=== PATIENT | male | born 1965 | race Caucasian/White ===

== ENCOUNTER 2023-08-04 20:16 | Inpatient (IN) | payer OTHER, SELFPAY ==
[2023-08-04 11:53] VITALS: BP 192/108
[2023-08-04 12:12] LABS: % Basophils 0.9 % (0-2); % Eosinophils 1.6 % (0-6); % Immature Granulocytes 0.4 % (0-0.5); % Lymphocytes 11.6 % (20.5-51.1); % Monocytes 9.5 % (1.7-9.3); Absolute Basophils 0.1 10^3/uL (0-0.2); Absolute Eosinophils 0.2 10^3/uL (0-0.7); Absolute Lymphocytes 1.1 10^3/uL (1.2-3.4); Absolute Monocytes 0.9 10^3/uL (0.1-0.6); Absolute Neutrophils 7.2 10^3/uL (1.4-6.5); Hematocrit 53.8 % (39.0-52.0); Hemoglobin 18.4 g/dL (13.0-18.0); Mean Corp Hgb Conc. 34.2 g/dL (33.0-37.0); Mean Corpuscular Hgb 29.3 pg (27.0-31.0); Mean Corpuscular Volume 85.5 fL (80.0-94.0); Mean Platelet Volume 8.8 fL (7.4-10.4); Nucleated Red Blood Cells % 0 % (-); Platelet Count 323 10^3/uL (130-400); Red Blood Cell Count 6.29 10^6/uL (4.70-6.10); Red Cell Dist. Width 12.1 % (11.5-14.5); White Blood Cell Count 9.5 10^3/uL (4.8-10.8)
[2023-08-04 12:25] LABS: ALT (SGPT) 32 U/L (0-50); AST (SGOT) 26 U/L (17-59); Albumin 5.5 g/dl (3.5-5.0); Alkaline Phosphatase 43 U/L (38-126); Blood Urea Nitrogen 23 mg/dl (9-20); Calcium 9.5 mg/dl (8.4-10.2); Carbon Dioxide 18 mmol/L (22-30); Chloride 97 mmol/L (98-107); Glucose 180 mg/dl (70-99); Lipase 105 U/L (23-300); Potassium 4.4 mmol/L (3.5-5.1); Sodium 136 mmol/L (135-145); Total Protein 8.2 g/dl (6.3-8.2); eGFR > 60.00
[2023-08-04] MEDS: NSS 1000 IV ×2 (14:09→22:44)
[2023-08-04] MEDS: DILAUDID 1 MG IV (14:10)
[2023-08-04] MEDS: ZOFRAN 4 MG IV (14:10)
--- NOTE | 2023-08-04 14:22 | ED.GENMED ---
History of Present Illness
General
Chief Complaint: Abdominal Pain
Source: patient
Exam Limitations: none
Time Seen by Provider: 08/04/23 13:36
Nursing documentation reviewed up to this point in time: agreed with
Travel History
Have you had any contact with someone who has COVID-19?: No
Do you have any symptoms of coronavirus? Fever > 100 degrees, chills, cough, shortness of breath, sore throat, loss of taste or smell, muscle aches, or headache?: No
History of Present Illness
History of Present Illness:
58-year-old male with history of HTN, HLD, NIDDM, ADHD, bipolar, nonalcoholic pancreatitis in 2011 presents with severe abdominal pain, nausea. States 2 nights ago while he was laying in bed sudden onset of generalized abdominal pain nausea and
vomiting. He felt better yesterday and then today at 7 AM pain suddenly. Again and is even worse. He denies fever or chills. He had a normal bowel movement yesterday. He is urinating well. He denies chest pain or trouble breathing.
Past History
Past History
ED Past Medical History: HTN, Hypercholesterolemia, NIDDM, Psychiatric (Anxiety) and Other (History of pancreatitis, type II diabetes, sleep apnea, immunoglobulin deficiency,)
ED Past Surgical History: None
Patient has exhibited threatening behavior?: No
PSI?: No
Social History
Tobacco: Former smoker
Alcohol: None
Drug: None
Personal: Single
Employment: Employed
Family History
Family History: Diabetes
Review of Systems
Review of Systems
Allergies reviewed?: Yes
All Other Systems: ROS reviewed and negative except as documented in HPI and ROS
Constitutional: Denies fever
Respiratory: Denies trouble breathing
Cardiac: Denies chest pain
ABD/GI: Reports abdominal pain, nausea and vomiting; Denies diarrhea, constipated, bloody stools or black stools
: Denies dysuria, frequency, difficulty voiding or urgency
Musculoskeletal: Reports no symptoms
Skin: Reports no symptoms
Neurological: Reports no symptoms
Phy Exam
Physical Exam
Physical Exam:
GENERAL: Moderate distress due to abdominal pain A&Ox3.
CONSTITUTIONAL: Afebrile.
EYES: PERRL, conjunctivae normal
ENMT: moist mucus membranes, Pharynx nl
RESPIRATORY: Regular respirations, nonlabored, lungs clear.
CARDIOVASCULAR: Regular rate and rhythm, no murmurs, no rubs.
GI: Rotund, semifirm, generally moderately tender, normal BS
MUSCULOSKELETAL: Moves with ease. Well perfused.
SKIN: Warm, dry, pink
PSYCH: Anxious mood and affect. Well kept, interactive and appropriate
NEUROLOGIC: Awake, alert and oriented. No focal neurological deficits
Course
Orders/Labs/Results
Orders:
Orders
08/04/23 12:00
Complete Blood Count/With Diff Urgent
Comprehensive Metabolic Panel Urgent
Lipase Urgent
08/04/23 14:01
HYDROmorphone [Dilaudid] 1 mg IV NOW STA
Ondansetron Injectable [Zofran] 4 mg IV NOW STA
08/04/23 14:02
0.9% Sodium Chloride 1000 ml [Nss] 1,000 ml IV BOLUS
08/04/23 14:25
Lactate Level [Lactic Acid] Urgent
08/04/23 15:05
CT Abd/pelvis W Iv Cont Urgent
Comment:
Reason For Exam: severe general abd pain
08/04/23 16:38
Ketorolac [Toradol] 15 mg IV NOW STA
08/04/23 17:21
SURGICAL CONSULT Urgent
Consulting Provider: Darrell Stanton
Was physician already notified: Yes
Reason for consult: SBO
08/04/23 18:34
Gastrointestinal Tubes As Directed
Type: Navarro sump
To suction?: Yes
Type of suction: Low intermittent
Irrigate tube?: No
08/04/23 19:03
HYDROmorphone [Dilaudid] 0.5 mg IV NOW STA
Lorazepam [Ativan] 1 mg IV NOW STA
08/04/23 19:05
Admit/Transfer Patient As Directed
Co-Sign Provider:
Level of Care: Inpatient admission
Assign to:: Medical/Surgical
Physician / Group: Johanna
Diagnosis: Small Bowel Obstruction
Reason for Hospitalization: NG tube, IVFs, Surgical Consult
Expected length of stay greater than two midnights?: Yes
ELOS- Estimated Length of Stay in days: 3
I certify the patient meets the requirements for IP care: Yes
0.9% Sodium Chloride [Nss (Preservative Free)] 0.5 ml IV NOW STA
08/04/23 19:06
Code Status As Directed
Resuscitation Status: Full Code
08/04/23 19:16
Pantoprazole [Protonix IV] 40 mg IV NOW STA
08/04/23 19:27
0.9% Sodium Chloride [Nss (Preservative Free)] 10 ml IV NOW STA
08/04/23 19:54
Portable Chest Xray [CR Chest Portable - 1 View] Stat
Comment:
Reason For Exam: post NG tube placement
Reason Study Needs to be Portable: Unable to Transport
08/04/23 20:53
HYDROmorphone [Dilaudid] 0.5 mg IV Q3HPRN PRN
08/04/23 21:18
HydrALAZINE [Apresoline] 10 mg IV Q6HPRN PRN
08/04/23 22:00
Lorazepam [Ativan] 1 mg IV QID
Abnormal Lab Results
08/04/23
12:00
RBC 6.29 H 10^6/uL
(4.70-6.10)
Hgb 18.4 H g/dL
(13.0-18.0)
Hct 53.8 H %
(39.0-52.0)
Absolute Neuts (auto) 7.2 H 10^3/uL
(1.4-6.5)
Absolute Lymphs (auto) 1.1 L 10^3/uL
(1.2-3.4)
Absolute Monos (auto) 0.9 H 10^3/uL
(0.1-0.6)
Neutrophils % 76.0 H %
(42.2-75.2)
Lymphocytes % 11.6 L %
(20.5-51.1)
Monocytes % 9.5 H %
(1.7-9.3)
Chloride 97 L mmol/L
(98-107)
Carbon Dioxide 18 L mmol/L
(22-30)
BUN 23 H mg/dl
(9-20)
Glucose 180 H mg/dl
(70-99)
Albumin 5.5 H g/dl
(3.5-5.0)
08/04/23 12:00
08/04/23 12:00
Vital Signs
Initial and Last Documented VS:
Initial Vital Signs
Temp Pulse Resp BP Pulse Ox
98.5 F 92 18 192/108 100
08/04/23 11:53 08/04/23 11:53 08/04/23 11:53 08/04/23 11:53 08/04/23 11:53
Last Documented Vital Signs
Temp Pulse Resp BP Pulse Ox
98.9 F 133 24 195/126 94
08/04/23 17:42 08/04/23 21:20 08/04/23 21:20 08/04/23 21:20 08/04/23 21:20
MDM/Problems Addressed
Differential Diagnosis Includes:
Pancreatitis, bowel obstruction, mesenteric ischemia, constipation
MDM/Problems Addressed:
08/04/2023 1400 PM
58-year-old male with history of HTN, HLD, NIDDM, ADHD, bipolar, nonalcoholic pancreatitis in 2011 presents with severe abdominal pain, nausea. States 2 nights ago while he was laying in bed sudden onset of generalized abdominal pain nausea and
vomiting. He felt better yesterday and then today at 7 AM pain suddenly. Again and is even worse. He denies fever or chills. He had a normal bowel movement yesterday. He is urinating well. He denies chest pain or trouble breathing.
Patient is in acute distress, writhing around on the stretcher, cannot find a comfortable position states 'I have never had pain this bad.'
08/04/2023 1424 PM
CBC with no clinically significant abnormality
CMP: Bicarb 18, BUN 23
Lipase WNL
Anion gap 21
Abdomen rotund, normal bowel sounds, generally significantly tender to palpation.
08/04/2023 1714 PM
Patient again complaining of significant abdominal pain.
CT results radiology report read:
IMPRESSION:
Small bowel obstruction with a transition point in the mid abdomen.
Hospitalist and Surgeon notified of admission
surgical consult in
Patient is lying comfortably on his right side and states the pain is well-controlled at this point.
*Critical Care Note
Total Time (30-74mins, 75-104mins- exclusive of procedures): Not Applicable
ED Attending Note
-
Portions of this chart may have been created with voice recognition software.� Occasional wrong word or��sound alike� substitutions may have occurred due to the inherent limitations of voice recognition software.
Discharge Plan
Departure
Patient Disposition: Admit
Date of Disposition: 08/04/23
Time of Disposition: 17:22
Admit to: Med/Surg
Presentation/result/management discussed w/ accepting MD/DO: Hospitalist
Condition: Fair
Discharge Problem:
SBO (small bowel obstruction)
Interventions
Interventions:
*Risk Screen - Suicide Last Done: 08/04/23 11:53
*General Assessment Last Done: 08/04/23 11:53
*Neglect/Abuse Screening Last Done: 08/04/23 11:53
ED- Fall Risk Assessment Last Done: 08/04/23 14:00
*ED COVID-19 Vaccine History Last Done: 08/04/23 11:53
JO-Scdwfz-Pgeygpsjif Assessment Last Done: 08/04/23 14:00
[2023-08-04 14:47] LABS: Lactic Acid 1.6 mmol/L (0.7-2.0)
[2023-08-04 14:51] VITALS: BP 188/109
[2023-08-04] MEDS: TORADOL 15 MG IV (16:44)
[2023-08-04 17:42] VITALS: BP 169/115
--- NOTE | 2023-08-04 18:54 | HPS.HSE ---
Addendum entered and electronically signed by Gaurav Spencer MD 08/04/23 20:22:
Severe abdominal pain. Savana had previous surgery, but did have pancreatitis once in the past
Pt seen independently and agree with PA note
Lungs clear
CV reg
Abd distended, active BS, very tender with +peritoneal signs
Imp:SBO
P:IVF
narcotic analgesic
Surgical consult, spoke to Dr. Stanton who requests NG decompression and he will see in morning
Original Note:
Family Physician
-
Family Physician: Cely Pham
Chief Complaint
-
Abdominal Pain and Distention
History of Present Illness
Patient is a 58 y/o male with PMH of hypertension, and non-insulin dependent type II diabetes who presented to the ED complaining of severe abdominal pain x 2 days. Patient says he had nausea and vomiting on Wednesday which then progressed to severe
abdominal pain. He experienced some relief yesterday afternoon but this morning it returned. He says he has 'never felt pain like this before'. He has had normal bowel movements since yesterday morning. He has indigestion at baseline however it has
been much worse over the past 2 days. He denies history of abdominal surgery. He denies fever, chills, sweats, or blood in stool.
Medical History
Past Medical History
Past Medical History: Reports Other
Additional Past Medical History:
Essential Hypertension
Hyperlipidemia
Diabetes Mellitus, Type II
Bipolar Disorder
ADHD
Past Surgical History: Reports None
Social History
Tobacco: Smoker (1/2 PPD)
Alcohol: None
Family History
Family History: Not pertinent
Allergies / Home Medications
Allergies reflects when Allergies were last updated in Known.
Home Medications with original date entered in Known
Allergy/Medication List:
Allergies
Allergy/AdvReac Type Severity Reaction Status Date / Time
cetirizine [From Zyrtec] Allergy Severe Anaphylaxis Verified 04/15/18 01:31
fexofenadine [From Janelle] Allergy Severe Anaphylaxis Verified 04/15/18 01:31
Home Medications
metformin 1,000 mg tablet 1,000 mg PO BID 08/25/11
amlodipine 10 mg tablet 10 mg PO DAILY 08/04/23
clonazepam 2 mg tablet 2 mg PO BID 08/04/23
dextroamphetamine-amphetamine 30 mg tablet 30 mg PO BID 08/04/23
empagliflozin 25 mg tablet (Jardiance) 25 mg PO DAILY 08/04/23
levocetirizine 5 mg tablet 5 mg PO DAILY 08/04/23
multivitamin 1 tab PO DAILY 08/04/23
pantoprazole 40 mg tablet,delayed release 40 mg PO DAILY 08/04/23
sertraline 100 mg tablet 200 mg PO DAILY 08/04/23
Review of Systems
-
A 12 point ROS was completed and negative except as noted: Yes
Constitutional: Denies Fever or Chills
Respiratory: Denies Cough or Trouble Breathing
Cardiac: Denies Chest Pain or Palpitations
Abdomen/GI: Reports See HPI
Physical Exam
Vital Signs
Vital Signs
Temp Pulse Resp BP Pulse Ox
98.9 F 110 16 169/115 96
08/04/23 17:42 08/04/23 17:42 08/04/23 17:42 08/04/23 17:42 08/04/23 17:42
Physical Exam
General: Other (Patient appears uncomfortable and pain)
HEENT: NormoCephalic and Anicteric
Respiratory: Clear and Non Labored Respirations
Cardiac: S1/S2 and Regular Rhythm
GI: Tender (Diffuse) and Distended
Rectal: Deferred by Provider
Musculoskeletal: No Clubbing, No Cyanosis and No Edema
Skin: Warm and Dry
Neuro: Awake, Alert, Oriented and Nonfocal/grossly intact
Laboratory Results
-
08/04/23 12:00
08/04/23 12:00
Laboratory Results
Lactic Acid 1.6 mmol/L (0.7-2.0) 08/04/23 14:25
Total Bilirubin 1.0 mg/dl (0.2-1.3) 08/04/23 12:00
AST 26 U/L (17-59) 08/04/23 12:00
ALT 32 U/L (0-50) 08/04/23 12:00
Alkaline Phosphatase 43 U/L (38-126) 08/04/23 12:00
Lipase 105 U/L (23-300) 08/04/23 12:00
Data Reviewed
-
CT Scan: Report Reviewed by me
Lab Data: Labs Reviewed by me
Impression/Plan
-
Small Bowel Obstruction
-Consult Surgery
-Place NG Tube
-Continue NPO/IVFs
Diabetes Mellitus, Type II
-Hold oral meds
-Monitor sugars and continue coverage insulin
Essential Hypertension
-Oral meds on hold
-Monitor blood pressure
Bipolar Disorder
-Change to lorazepam IV until able to resume oral meds
Tobacco Use Disorder
-Encourage cessation
-Offered Nicotine patch which patient declined
DVT proph: SCDs
Code Status: Full Code
[2023-08-04 19:22] VITALS: BP 204/117
[2023-08-04] MEDS: DILAUDID 0.5 MG IV ×3 (19:27→22:41)
[2023-08-04] MEDS: ATIVAN 1 MG IV ×2 (19:31→21:39)
[2023-08-04] MEDS: NSS (PRESERVATIVE FREE) 0.5 ML IV (19:33)
[2023-08-04] MEDS: PROTONIX IV 40 MG IV (19:58)
[2023-08-04] MEDS: NSS (PRESERVATIVE FREE) 10 ML IV (19:58)
--- NOTE | 2023-08-04 21:11 | EDRN ---
2044- this ABATTOIR MANAGER answered this pts call fuentes. the pt requested additional pain medication for abdominal pain.
2049- this ABATTOIR MANAGER spoke with admitting hospitalist ANA Elizalde notified her the pt is requesting pain meds sooner than Q3H which is what he has orders for. see EMAR. admitting hospitalist ANA Elizalde gave this ABATTOIR MANAGER verbal approval
to administer pain meds now per the pts request.
2099- this ABATTOIR MANAGER entered this pts room to administer ordered pain meds. the pt was noted out of bed standing in the bathroom urinating in the toilet while his NG tube was still hooked up to low intermittent wall suction. the pts gastric contents
were spilled on the bed sheets and the floor from the pts leaking NG tube due to the suction tubing being stretched. the pt was assisted to sit in a chair while this ABATTOIR MANAGER cleaned up the pts room, the floor, bedside table, bathroom floor, bed, and
put clean hospital bed sheets on the bed. the pt refused to change out of his soiled shirt into a clean hospital gown and told this ABATTOIR MANAGER 'just pin the NG tube to my shirt.' the pt was again told to use his call fuentes and wait for assistance before
getting out of bed. the pt stated 'I could not hold it I was going to piss my pants.' a urinal was placed at the pts bedside. pain medication was administered per EMAR order. the pt is waiting to be assigned a clean inpatient hospital room.
[2023-08-04 21:20] VITALS: BP 195/126
[2023-08-04] MEDS: APRESOLINE 10 MG IV (21:47)
[2023-08-04 22:01] VITALS: BP 168/108
[2023-08-04] MEDS: OFIRMEV 100 IV (22:35)
[2023-08-04] MEDS: ZOSYN 50 IV (22:45)
[2023-08-05] VITALS (17 sets, daily range): BP systolic 94–146; BP diastolic 62–106; BMI 20.7
[2023-08-05] MEDS: DILAUDID 0.5 MG IV ×4 (00:39→06:57)
[2023-08-05] MEDS: ZOFRAN 4 MG IV (00:40)
[2023-08-05] MEDS: ATIVAN 1 MG IV ×2 (03:07→14:31)
[2023-08-05] MEDS: ZOSYN 50 IV ×2 (04:32→14:08)
[2023-08-05] MEDS: NSS 1000 IV (05:53)
[2023-08-05 06:39] LABS: Blood Urea Nitrogen 43 mg/dl (9-20); Calcium 7.9 mg/dl (8.4-10.2); Carbon Dioxide 6 mmol/L (22-30); Chloride 104 mmol/L (98-107); Estimated Creatinine Clearance 27 ml/min; Glucose 270 mg/dl (70-99); Magnesium 2.4 mg/dl (1.6-2.3); Potassium 3.6 mmol/L (3.5-5.1); Sodium 139 mmol/L (135-145); eGFR 22.72
[2023-08-05 06:52] LABS: Hematocrit 59.5 % (39.0-52.0); Hemoglobin 19.5 g/dL (13.0-18.0); Mean Corp Hgb Conc. 32.8 g/dL (33.0-37.0); Mean Corpuscular Hgb 29.4 pg (27.0-31.0); Mean Corpuscular Volume 89.6 fL (80.0-94.0); Mean Platelet Volume 9.8 fL (7.4-10.4); Platelet Count 296 10^3/uL (130-400); Red Blood Cell Count 6.64 10^6/uL (4.70-6.10); Red Cell Dist. Width 12.8 % (11.5-14.5); White Blood Cell Count 2.5 10^3/uL (4.8-10.8)
[2023-08-05 07:29] LABS: Glucose - Point of Care 191 mg/dl (70-99)
--- NOTE | 2023-08-05 07:45 | CON.GS ---
Consultation
-
Date/Time Consultation Requested: 08/04/23 7pm
Date/Time Consultation Performed: 08/05/23 7am
Reason for Consultation: SBO
Medical History
-
Chief Complaint: Abdominal pain
History of Present Illness:
Patient is a 58-year-old male presenting to the emergency department secondary to a 3-day history of progressive and acute onset of abdominal pain.
Is only similar episode of pain like this in the past was when he had pancreatitis back in 2011 which has recovered from without recurrence. He is a limited historian at this time secondary to his acute illness. Reports a generalized abdominal
pain which is constant. Associated nausea and vomiting.
In discussing with his sister via phone call she states that he has had significant postprandial abdominal distention and bloating over the course of greater than a year. No past surgical history.
Past Medical History
Past Medical History: Other (Hypertension, type 2 diabetes [id number], bipolar, ADHD, hyperlipidemia)
Past Surgical History: None
Social History
Tobacco: Smoker (Half a pack per day)
Alcohol: None
Drug: None
Personal: Single
Living: Alone
Employment: Not Employed
Family History
Family History: Reviewed & Not Pertinent
Allergies / Home Medications
Allergy/AdvReac Type Severity Reaction Status Date / Time
cetirizine [From Zyrtec] Allergy Severe Anaphylaxis Verified 04/15/18 01:31
fexofenadine [From Janelle] Allergy Severe Anaphylaxis Verified 04/15/18 01:31
Medication Instructions Recorded Confirmed Type
metformin 1,000 mg tablet 1,000 mg PO BID 08/25/11 08/04/23 History
amlodipine 10 mg tablet 10 mg PO DAILY 08/04/23 08/04/23 History
clonazepam 2 mg tablet 2 mg PO BID 08/04/23 08/04/23 History
dextroamphetamine-amphetamine 30 30 mg PO BID 08/04/23 08/04/23 History
mg tablet
empagliflozin 25 mg tablet 25 mg PO DAILY 08/04/23 08/04/23 History
(Jardiance)
levocetirizine 5 mg tablet 5 mg PO DAILY 08/04/23 08/04/23 History
multivitamin 1 tab PO DAILY 08/04/23 08/04/23 History
pantoprazole 40 mg tablet,delayed 40 mg PO DAILY 08/04/23 08/04/23 History
release
sertraline 100 mg tablet 200 mg PO DAILY 08/04/23 08/04/23 History
Review of Systems
-
Unable to obtain full review of systems at this time due to: Acuity
A 10 point review of systems was completed, and was negative except as per HPI.
Physical Exam
Vital Signs
Temp Pulse Resp BP Pulse Ox
98.9 F 79 22 113/93 99
08/04/23 17:42 08/05/23 05:55 08/05/23 05:55 08/05/23 05:55 08/05/23 05:55
08/04/23 08/05/23 08/06/23
06:59 06:59 06:59
Actual Weight 71.214 kg
Body Mass Index (BMI) 0.0
Lab Results
08/05/23 04:40
08/05/23 04:40
WBC 2.5 10^3/uL (4.8-10.8) L 08/05/23 04:40
Hgb 19.5 g/dL (13.0-18.0) H 08/05/23 04:40
Hct 59.5 % (39.0-52.0) H 08/05/23 04:40
Plt Count 296 10^3/uL (130-400) 08/05/23 04:40
Abs Immat Gran (auto) 0.0 10^3/uL (0-0.05) 08/04/23 12:00
Neutrophils % 76.0 % (42.2-75.2) H 08/04/23 12:00
Physical Exam
General: Pain and Other (Acutely ill-appearing)
HEENT: Normocephalic and Anicteric
Respiratory: Accessory Resp Muscle Use
Cardiac: Regular Rhythm
GI: Soft, Tender (Diffuse tenderness with rebound) and Distended
Skin: Other
Neuro: AO x 3
Psych: Other (uncomfortable but calm)
Assessment / Plan
-
Assessment: 58-year-old male presenting with acute small bowel obstruction with no prior surgical history.
CT imaging reviewed. No evidence of closed-loop obstruction, pneumatosis, free air. There is moderate small bowel distention and abrupt transition point in the central abdomen. May be some nodularity associated with the bowel in this area.
Proximal small bowel distention and mild edema but no ascites.
NG tube placed in the emergency department yesterday evening with approximately 1 L of gastric contents overnight.
Reviewed with patient and his sister via phone call, given persistent pain, progressive acidosis, leukopenia and abdominal examination despite NG tube decompression recommended prompt surgical intervention. They are in agreement. Exploratory
laparotomy, probable bowel resection was reviewed in detail including the operative technique, potential operative findings and their management. We discussed the possibility of the need for second look laparotomy, staying intubated postoperatively
with ICU care. Reviewed associated risk with surgery and possible recovery pending operative findings. Any of their concerns or questions were fully addressed and informed consent was obtained.
Plan: OR setting up now for laparotomy
Continue Zosyn
Continue aggressive IV fluid resuscitation
[2023-08-05 08:54] LABS: Glycohemoglobin (HgbA1c) 9.3 % (4.0-5.6)
[2023-08-05 09:01] LABS: B.E. - POC -26.7 mmol/L; Glucose - POC 180 mg/dl (65-99); HCO3 - POC 8 mmol/L (21-29); Hematocrit - POC 46 % PCV (42-52); Hemodilution- POC Yes; Hemoglobin Calculated - POC 15.7; Ionized Calcium - POC 1.06 mmol/L (1.12-1.27); Lactate - POC 11.87 mmol/L (0.36-0.75); O2 Saturation %Calculated-POC 97.7 5 (92-96); PCO2 - POC 51 mmHg (35-45); PO2 - POC 180 mmHg (80-100); Potassium - POC 3.6 mmol/L (3.6-5.0); Sodium - POC 145 mmol/L (135-145); pH - POC 6.82 (7.35-7.45)
[2023-08-05 09:38] LABS: Glucose - POC 162 mg/dl (65-99); HCO3 - POC 12 mmol/L (21-29); Hematocrit - POC 42 % PCV (42-52); Hemodilution- POC Yes; Hemoglobin Calculated - POC 14.3; Ionized Calcium - POC 1.01 mmol/L (1.12-1.27); O2 Saturation %Calculated-POC 98.4 5 (92-96); PCO2 - POC 55 mmHg (35-45); PO2 - POC 176 mmHg (80-100); Potassium - POC 3.8 mmol/L (3.6-5.0); Sodium - POC 146 mmol/L (135-145); pH - POC 6.96 (7.35-7.45)
[2023-08-05 10:33] LABS: B.E. - POC -14.2 mmol/L; Glucose - POC 147 mg/dl (65-99); HCO3 - POC 16 mmol/L (21-29); Hematocrit - POC 37 % PCV (42-52); Hemodilution- POC Yes; Hemoglobin Calculated - POC 12.5; Ionized Calcium - POC 1.26 mmol/L (1.12-1.27); Lactate - POC 12.97 mmol/L (0.36-0.75); O2 Saturation %Calculated-POC 95.3 5 (92-96); PCO2 - POC 59 mmHg (35-45); PO2 - POC 110 mmHg (80-100); Potassium - POC 3.5 mmol/L (3.6-5.0); Sodium - POC 147 mmol/L (135-145); pH - POC 7.06 (7.35-7.45)
--- NOTE | 2023-08-05 11:52 | W.SUR.PREOP ---
Pre-Operative Surgical Note
-
I have examined this patient prior to the performance of the scheduled procedure.
The patient's condition is unchanged from the time of the current History and
Physical and the patient is able to undergo the scheduled procedure.
--- NOTE | 2023-08-05 11:52 | W.IMMPOSTOP ---
Addendum entered and electronically signed by Darrell Stanton MD 08/05/23 19:03:
#[id number]
Original Note:
Surgical Immed Post Op Note
-
Primary Surgeon: Maximino
Assisting Surgeon: Barbara FINNEY
Pre-op Diagnosis: Small bowel obstruction, peritonitis
Post-op Diagnosis: Small bowel obstruction, ischemic small bowel, peritonitis, septic/hypovolemic shock
Procedure Performed: Exploratory laparotomy, small bowel resection x 2
Anesthesia Type: GETA
Specimen / Cultures: Small bowel resection at point of obstruction/stenosis; more proximal small bowel resection of area of ischemic small bowel
Estimated Blood Loss: 50 mL
Complications: None immediate
Operative Findings: High-grade/complete small bowel obstruction from food bolus present at suspected Meckel's diverticular high-grade stricture. Moderately distended proximal small bowel with areas suggestive of partial-thickness/mucosal ischemia.
Proximal ileum/distal jejunum particularly with what appeared to be circumferential mucosal ischemia. Small bowel proximally and distal to this area suspected to have more limited areas of mucosal ischemia. Small bowel resection performed of about
85 cm to 90 cm where the circumferential mucosal ischemia was noted. First small bowel anastomosis is at 90 cm from ligament of Treitz ([id number] KRISTI 80 purple). Second small bowel anastomosis is 85 cm distally from this and 50 cm from terminal
ileum ([id number] KRISTI 80 purple anastomosis)
Plan: Right radial arterial line placed intraoperatively by anesthesiologist. Right internal jugular central venous line placed intraoperatively by anesthesiologist.
Transferred to intensive care unit for ongoing postoperative resuscitation. Cautiously optimistic/hopeful that with improved hemodynamics remaining small bowel perfusion will improve and remain viable. Possibility exists for need of second look
laparotomy in 24 to 48 hours pending clinical course.
Updated patient's sister via phone call postoperatively.
--- NOTE | 2023-08-05 12:15 | CON.INTV ---
Consultation
Consultation Request
Date/Time Consultation Requested: 08/05/2023
Date/Time Consultation Performed: 08/05/2023
Requesting Provider: Dr. Stanton
Performing Provider: Dr. Raman Bae
Reason for Consultation: Septic shock
Medical History
-
History of Present Illness:
58-year-old male with history of hypertension, active smoker, type 2 diabetes who presented to the emergency room complaining of severe abdominal pain for the last 2 to 3 days. Apparently since Wednesday also with nausea vomiting that has been
progressive with severe abdominal pain. There is no reports of fevers, chills, bloody stools or melena.
He was found to be in profound metabolic acidosis, suggestive of bowel ischemia. Patient was hyperglycemic.
CT abdomen pelvis in the emergency room demonstrated small bowel obstruction with a transition point in the mid abdomen.
This morning he was emergently taken to the operating room due to progressive acidosis, hypotension and critical illness.
Underwent a small bowel resection. Transfer back to the critical care unit for further care.
Currently on shock, requiring multiple pressors. Intubated.
Currently sedated. Unable to provide history.
Records reviewed.
Past Medical History
Past Medical History: Other (See assessment and plan section)
Social History
Tobacco: Smoker (Half a pack per day )
Drug: None
Family History
Family History: Unable to Obtain
Allergies / Home Medications
Allergies
Allergy/AdvReac Type Severity Reaction Status Date / Time
cetirizine [From Zyrtec] Allergy Severe Anaphylaxis Verified 04/15/18 01:31
fexofenadine [From Janelle] Allergy Severe Anaphylaxis Verified 04/15/18 01:31
Home Medications
Medication Instructions Recorded Confirmed Last Taken Type
metformin 1,000 mg tablet 1,000 mg PO BID 08/25/11 08/04/23 2 Days Ago History
~08/02/23
amlodipine 10 mg tablet 10 mg PO DAILY 08/04/23 08/04/23 2 Days Ago History
~08/02/23
clonazepam 2 mg tablet 2 mg PO BID 08/04/23 08/04/23 2 Days Ago History
~08/02/23
dextroamphetamine-amphetamine 30 30 mg PO BID 08/04/23 08/04/23 2 Days Ago History
mg tablet ~08/02/23
empagliflozin 25 mg tablet 25 mg PO DAILY 08/04/23 08/04/23 2 Days Ago History
(Jardiance) ~08/02/23
levocetirizine 5 mg tablet 5 mg PO DAILY 08/04/23 08/04/23 2 Days Ago History
~08/02/23
multivitamin 1 tab PO DAILY 08/04/23 08/04/23 2 Days Ago History
~08/02/23
pantoprazole 40 mg tablet,delayed 40 mg PO DAILY 08/04/23 08/04/23 2 Days Ago History
release ~08/02/23
sertraline 100 mg tablet 200 mg PO DAILY 08/04/23 08/04/23 2 Days Ago History
~08/02/23
Review of Systems
-
Unable to Obtain full review of systems at this time due to: Acuity
Vitals / Labs / Diagnostic Testing
Vital Signs
Temp Pulse Resp BP Pulse Ox
98.9 F 99 30 119/98 95
08/04/23 17:42 08/05/23 07:40 08/05/23 07:40 08/05/23 07:40 08/05/23 12:12
Diagnostic Testing:
Physical Exam
-
HEENT: Normocephalic
Cardiovascular: S1/S2
Respiratory: Clear and Non-Labored Respirations
GI: Soft, Distended (Decreased bowel sounds, status post surgery.), Other (Flores in place with y small amount of yellow urine.) and Other (Absent bowel sounds. Incision is intact)
Neurology: Other ( Sedated, mechanical ventilation.)
Skin: Other (Mottled skin. Acrocyanosis.)
General: Comfortable (On sedation)
Assessment
-
58-year-old man with type 2 diabetes, hypertension, bipolar disorder, came with acute abdominal pain. Found to be in profound metabolic acidosis, small bowel obstruction. Taken to the operating room emergently 08/05/2023. Underwent a small bowel
resection. Transferred to the critical care unit intubated on mechanical ventilation on pressors.
Possible septic shock-due to bowel ischemia.
Small bowel obstruction: Bowel ischemia.
CT chest 08/04/2023:Small bowel obstruction with a transition point in the mid abdomen.
Status post small bowel resection 08/05/2023
Respiratory failure: Likely hypercapnic in the setting of severe metabolic acidosis. On mechanical ventilation since 08/05/2023.
Profound metabolic acidosis secondary to above
Acute kidney injury-oliguric, creatinine 3.1.
Hyperglycemia-due to critical illness.
Conditions present prior admission:
Type 2 diabetes
Hypertension
Overweight
Smoker
HD HTN
Bipolar disorder
Hyperlipidemia
-
Plan recommendations:
Patient is critically ill with multiorgan failure including respiratory failure, septic shock, metabolic acidosis, acute kidney injury.
-
Status post small bowel resection
Case discussed with Dr. Stanton. There is potential for reexploration of the abdomen. He resected about a third of the small bowel that was potentially ischemic.
Maintain antibiotics for now
Cultures were sent we will follow
Will remain n.p.o.
NG tube in place
-
Septic shock: Continue hemodynamic support. Maintain mean arterial blood pressure greater than 65 mmHg.
Central line in place
Arterial line in place
Will trend lactic acid and BMP
-
Mechanical ventilation settings reviewed.
Not significantly hypoxemic.
Repeat ABG, will adjust mechanical ventilation depending on results
Chest x-ray: Reviewed bibasilar atelectasis. ET tube in place.
-
Sedation, discontinue Precedex.
Start fentanyl drip.
Maintain RASS (0-1)
-
Acute kidney injury secondary to above
Flores in place
Oliguria
Will start bicarbonate drip due to profound metabolic acidosis
May need nephrology consultation.
Cannot rule out that the patient may need CRRT.
-
Hold antihypertensives
Avoid other nephrotoxins
-
Type 2 diabetes, uncontrolled. Likely will need insulin drip.
Continue insulin sliding scale for now.
-
N.p.o.
Head of the bed elevation
DVT prophylaxis SCDs for now.
-
Critical care statement: A total of 50 minutes of critical care time was provided for this patient today. This includes management of unstable vital signs, evaluation of the patient at bedside, reviewing the patient's pertinent medical records
including ventilator settings, arterial blood gases, radiographs, microbiology, laboratory evaluations and discussion with primary team, critical care nursing, and respiratory therapy.
[2023-08-05] MEDS: SUBLIMAZE 100 IV (12:57)
[2023-08-05] MEDS: SUBLIMAZE 50 MCG IV ×2 (13:05→14:31)
[2023-08-05 13:10] LABS: B.E. -17.2 mmol/L; PCO2 57 mmHg (35-48); PO2 112 mmHg (83-108)
[2023-08-05 13:10] LABS: Hematocrit 50.2 % (39.0-52.0); Hemoglobin 16.3 g/dL (13.0-18.0); Mean Corp Hgb Conc. 32.5 g/dL (33.0-37.0); Mean Corpuscular Hgb 29.1 pg (27.0-31.0); Mean Corpuscular Volume 89.5 fL (80.0-94.0); Red Blood Cell Count 5.61 10^6/uL (4.70-6.10); Red Cell Dist. Width 12.8 % (11.5-14.5); White Blood Cell Count 3.3 10^3/uL (4.8-10.8)
[2023-08-05 13:13] LABS: HCO3 14.4 mmol/L (21-28); pH 7.01 (7.35-7.45)
[2023-08-05 13:21] LABS: INR 2.36; PT 26.1 Sec (11.4-14.6)
[2023-08-05 13:22] LABS: APTT 49.9 Sec (23.4-35.0)
[2023-08-05 13:23] LABS: Lactic Acid 8.1 mmol/L (0.7-2.0)
[2023-08-05 13:24] LABS: Glucose - Point of Care 162 mg/dl (70-99)
[2023-08-05 13:36] LABS: Blood Urea Nitrogen 45 mg/dl (9-20); Calcium 7.5 mg/dl (8.4-10.2); Carbon Dioxide 17 mmol/L (22-30); Chloride 106 mmol/L (98-107); Estimated Creatinine Clearance 30 ml/min; Glucose 185 mg/dl (70-99); Phosphorus 9.5 mg/dl (2.5-4.5); Potassium 4.4 mmol/L (3.5-5.1); Sodium 140 mmol/L (135-145); eGFR 25.68
[2023-08-05] MEDS: ATIVAN IV ×2 (13:37→18:51)
[2023-08-05] MEDS: ZOSYN IV (13:37)
--- NOTE | 2023-08-05 13:38 | W.PN.HOSP.TC ---
Today's Communication/Plan
-
change IVF to include bicarb
consult [facility] DM for insulin management
wean pressors as able
check blood cultures
cont zosyn
apprec all consultants
Assessment / Plan
Assessment / Plan
pt is a 58 year old male
Septic shock/EHSAN/severe lactic acidosis due to Small Bowel Obstruction with ischemic bowel--apprec surgery--s/p bowel resection--cont NGT--cont IVF--change to include bicarbonate as HCO3 is 14 and pH 7.01--apprec charger--remains intubated, vent
as per pulm--potential for re-exploration of abdomen as per surgery--on 3 pressors, wean as able--on fentanyl for sedation, precedex stopped per nursing--creat 3.1 on 08/04 down to 2.8--check blood cultures--cont zosyn
Diabetes Mellitus, Type II--Hold oral meds--Monitor sugars and continue coverage insulin--consult DM MAT MAN for insulin requirements
Essential Hypertension--Oral meds on hold--on 3 pressors, wean as able
Bipolar Disorder-- hold all oral meds--may need psych consult--Change to lorazepam IV until able to resume oral meds
Tobacco Use Disorder--Encourage cessation--Offered Nicotine patch which patient declined
DVT proph: SCDs
Code Status: Full Code
Anticipated Discharge: > 48 hours
Subjective/Interval History
-
Date of Service: August 05, 2023
pt s/p OR with bowel resection--remains intubated
Objective Data
-
Labs:
Laboratory Results
08/05/23 08/05/23 08/05/23
04:40 12:49 12:52
WBC 2.5 L 3.3 L
Hgb 19.5 H 16.3
Hct 59.5 H 50.2
Plt Count 296 Pending
PT 26.1 H
INR 2.36
APTT 49.9 H
HCO3 14.4 L*
Sodium 139 140
Potassium 3.6 4.4
Chloride 104 106
Carbon Dioxide 6 L* 17 L
BUN 43 H 45 H
Creatinine 3.1 H 2.8 H
Glucose 270 H 185 H
Calcium 7.9 L D 7.5 L
08/05/23
16:00
WBC
Hgb
Hct
Plt Count
PT
INR
APTT
HCO3
Sodium Pending
Potassium Pending
Chloride Pending
Carbon Dioxide Pending
BUN Pending
Creatinine Pending
Glucose Pending
Calcium Pending
Vital Signs:
max temp for 24 hours
08/04/23
17:42
Temp 98.9 F
Vital Signs
Temp Pulse Resp BP Pulse Ox
98.9 F 105 14 124/90 92
08/04/23 17:42 08/05/23 12:45 08/05/23 12:45 08/05/23 12:45 08/05/23 13:15
I&O
08/04/23 08/05/23 08/06/23
06:59 06:59 06:59
Intake Total 1120 / 1120
Output Total 1600 / 1600 900 / 900
Balance -480 / -480 -900 / -900
Review of Systems
-
Unable to obtain full review of systems at this time due to: Patient Intubation
Physical Exam
-
General: Well Developed, Well Nourished, No Apparent Distress and Intubated
HEENT: Normocephalic, Atraumatic and Other (cyanotic ears)
Respiratory: Clear to Auscultation; Negative Wheezes, Rales, Rhonchi or Crackles
Cardiac: Regular Rhythm and S1/S2; Negative Murmur
GI: Soft, Nontender and Distended (post op); Negative Normal Bowel Sounds (no bowel sounds)
Musculoskeletal: No Clubbing and No Edema; Negative No Cyanosis (cyanotic ears)
Neuro: Sedated; Negative Awake or Alert
Psych: Calm
--- NOTE | 2023-08-05 14:00 | PTCARENOTE ---
Patient received from OR intubated on ventilator. Epinephrine, Levophed, and vasopressin transfusing, titrate to keep MAP >65. Sinus tachycardia on the monitor. Abdomen with prema, dressing CDI. Flores catheter in place draining minimal urine. NGT
to intermittent suction, bloody output. Patient resting in bed, CPOT monitored.
--- NOTE | 2023-08-05 14:04 | W.PN.UPDATE ---
Update Note
Progress Note Update
Discussed with nursing patient has anisocoric pupils. Possible righ postsurgical changes.
Unable to assess mental status at this point.
I view of severe metabolic abnormalities, and shock, will attempt to correct severe acidosis and reeevaluate.
Will consider CT brain if changes persist in next several hours.
Will give bolus 500ml of NS now
Severe resp and metabolic acidosis, vent settings adjusted by me, RR increased to 26x.
Will give a bolus of HCO3 50meq now and followed by a gtt
Repeat labs at 3pm
Repeat ABG at 1pm
Pronosis is guarted.
Additional CCT 30 min.
[2023-08-05] MEDS: LEVOPHED 250 IV (14:08)
[2023-08-05 14:12] LABS: Mean Platelet Volume 9.8 fL (7.4-10.4); Platelet Count 70 10^3/uL (130-400)
[2023-08-05 14:13] LABS: Absolute Neutrophils -Man Diff 1.6 10^3/uL (1.4-6.5); Anisocytosis 1+; Band Neutrophils 21 % (0-3); Hypochromasia 1+; Lymphocytes 32 % (20-51); Metamyelocytes 8 % (-); Monocytes 10 % (2-9); Normal RBC Morphology No; Nucleated Red Blood Cells 16 (-); Platelets Checked Yes; Polychromasia 1+; Segmented Neutrophils 29 % (42-75)
[2023-08-05 14:14] LABS: Acanthocytes 1+; Total Cells Counted 100
[2023-08-05] MEDS: NSS 500 IV (14:19)
[2023-08-05] MEDS: NSS IV (14:20)
--- NOTE | 2023-08-05 14:22 | PN.DE.MGMTRT ---
Insulin Management
- -
08/05/2023: Diabetes Management Consult
58 year old male admitted with acute abdominal pain found to be in profound Septic shock/EHSAN/severe lactic acidosis due to Small Bowel Obstruction with ischemic bowel. Now s/p bowel resection. PMH includes: HTN, HLD, Bipolar, Obesity, active smoker
and T2DM. Was taking Metformin 1000mg BID and Jardiance 25mg daily, A1C on admission 9.3%. Cr 1.2-->3.1 on 08/04--> 2.8 today
Pt is currently intubated on several pressors and is unable to provide hx or participate in interview. No family at bedside
He is noted for severe metabolic acidosis HCO3 is 14 with a PH of 7.01 and has been started on a bicarb drip.
His glucose has been elevated, most recent venous glucose was 185. Pt is NPO with NGT in place, no plans for tube feeds at this time.
Will start insulin therapy, give Lantus 10 units now and daily in AM. Start moderate corrective insulin Q6H, Accucheks Q6hrs
Will closely follow and make further adjustments as condition improves.
Discussed with Pt's Nurse at bedside.
Diabetes History
- -
Type of Diabetes: 2
Pre-Admission Diabetes Regimen
08/05/23 08/05/23
04:40 12:49
Creatinine 3.1 H 2.8 H
Lab Results
Hemoglobin A1c 9.3 % (4.0-5.6) H 08/05/23 04:40
Insulin Pump Settings
IP Diabetes Regimen
08/05/23 08/05/23 08/05/23
04:40 07:27 12:49
Glucose 270 H 185 H
POC Glucose 191 H
08/05/23
13:13
Glucose
POC Glucose 162 H
Patient Education
[2023-08-05] MEDS: SODIUM BICARBONATE 50 MEQ IV ×3 (14:25→18:51)
[2023-08-05] MEDS: SODIUM BICARBONATE 1075 MEQ IV (14:37)
[2023-08-05 15:28] LABS: B.E. -17.5 mmol/L; PCO2 40 mmHg (35-48); PO2 85 mmHg (83-108)
[2023-08-05 15:32] LABS: HCO3 11.9 mmol/L (21-28); pH 7.08 (7.35-7.45)
[2023-08-05] MEDS: LANTUS 0.100000000000000006 UNITS SC (15:40)
[2023-08-05] MEDS: SOLU-CORTEF 100 MG IV (15:56)
--- NOTE | 2023-08-05 15:58 | W.PN.UPDATE ---
Update Note
Progress Note Update
Unfortunately, patient remains critically ill, maximized on 3 vasopressors including epinephrine/norepinephrine/vasopressin.
Despite mechanical ventilation adjustment, patient remains profoundly acidotic. Likely mostly metabolic.
Will increase bicarbonate drip to 200 cc an hour.
Will give additional amp of bicarbonate.
Will give 1 amp of calcium.
Blood pressure after above intervention is 90/60. Heart rate is 79.
Patient appears mottled.
Abdomen is not significantly distended. Incision appears intact.
Will obtain an H&H as well.
Will add hydrocortisone, 100 mg x 1 for now.
Continue current mechanical ventilation changes. Patient is maxed out.
Prognosis is guarded.
Discussed with Dr. Stanton who is going to contact his sister.
Additional critical care time 25 minutes.
[2023-08-05] MEDS: CALCIUM GLUCONATE 100 IV (16:02)
[2023-08-05 16:09] LABS: Hematocrit 46.4 % (39.0-52.0); Hemoglobin 15.1 g/dL (13.0-18.0)
[2023-08-05 16:14] LABS: Lactic Acid 11.3 mmol/L (0.7-2.0)
[2023-08-05 16:35] LABS: Blood Urea Nitrogen 44 mg/dl (9-20); Calcium 6.7 mg/dl (8.4-10.2); Carbon Dioxide 9 mmol/L (22-30); Chloride 109 mmol/L (98-107); Estimated Creatinine Clearance 25 ml/min; Glucose 208 mg/dl (70-99); Potassium 6.9 mmol/L (3.5-5.1); Sodium 137 mmol/L (135-145); eGFR 21.08
--- NOTE | 2023-08-05 16:49 | W.PN.ANS.POP ---
Anesthesia Post Operative
- Anesthesia Post Op Note
Vital Signs Stable-See Nursing Note: No (very guarded prognosis, patient on 3 pressors, continues to be acidotic)
Airway Patent: Yes
Adequate Pain Control: Yes
Change in Mental Status: No (sedated intubated)
Current Postoperative Nausea & Vomiting: No
Anesthesia Complications: No
General Anesthetic Recall: No
Unplanned Admission: No
Post Op Hydration Adequate: Yes (hemodynamically unstable)
[2023-08-05] MEDS: NIMBEX 11 MG IV (16:58)
--- NOTE | 2023-08-05 17:18 | W.PN.UPDATE ---
Update Note
Progress Note Update
Unfortunately, patient continues to be severely ill.
Evolving multiorgan failure, now mostly anuric.
Profoundly acidotic despite aggressive bicarbonate repletion.
Profoundly hypotensive despite maximized on 3 vasopressors.
Hyperkalemia,-
Patient received multiple amps of bicarbonate and calcium.
I discussed the case with Dr. Stanton, he has discussed with his sister who wishes to continue with resuscitation efforts.
The plan is for a bedside laparotomy.
I have consulted nephrology patient will need CRRT.
Will continue to provide bicarbonate and calcium for support.
Long discussion with Dr. Neal, Dr. Stanton and also with anesthesia.
Prognosis is guarded.
Additional critical care time 30 minutes
[2023-08-05] MEDS: [UNRECOGNIZED DRUG - OTHER] 251 MG IV (17:20)
--- NOTE | 2023-08-05 17:22 | W.CON.NEPH ---
Consultation
-
Date/Time Consultation Requested: 08/04 4:50PM
Date/Time Consultation Performed: 08/04 5:31
Requesting Provider: Raman Boothe
Performing Provider: Irene Allen
Reason for Consultation: acidosis
Medical History
-
Chief Complaint: metabolic acidosis, hyperkalemia
History of Present Illness:
Mr. Rosales is a 58YOM with a PMH of hypertension, and non-insulin dependent type II diabetes who presented to the ED complaining of abdominal pain x2 days. Patient is currently intubated, sedated and undergoing bedside ex-lap. Hisotry is obtained
from other physicians and chart review. Patient says he had nausea and vomiting on Wednesday which then progressed to severe abdominal pain. He experienced some relief yesterday afternoon but this morning it returned. He says he has 'never felt pain
like this before'. He has had normal bowel movements since yesterday morning. He has indigestion at baseline however it has been much worse over the past 2 days. He denies history of abdominal surgery. He denies fever, chills, sweats, or blood in
stool. Nephrology consulted for refracrtory acidosis, hyperK and anuria.
Past Medical History
ADHD
Past Medical History: HTN, IDDM and Psychiatric (bipolar disorder)
Past Surgical History: None
Social History
Tobacco: Smoker
Alcohol: None
Drug: None
Family History
Family History: Not Pertinent
Allergies / Home Medications
Allergy/AdvReac Type Severity Reaction Status Date / Time
cetirizine [From Zyrtec] Allergy Severe Anaphylaxis Verified 04/15/18 01:31
fexofenadine [From Janelle] Allergy Severe Anaphylaxis Verified 04/15/18 01:31
Medication Instructions Recorded Confirmed Type
metformin 1,000 mg tablet 1,000 mg PO BID Diabetes 08/25/11 08/04/23 History
amlodipine 10 mg tablet 10 mg PO DAILY Blood Pressure 08/04/23 08/04/23 History
clonazepam 2 mg tablet 2 mg PO BID Mental Health/Anxiety 08/04/23 08/04/23 History
dextroamphetamine-amphetamine 30 30 mg PO BID ADHD 08/04/23 08/04/23 History
mg tablet
empagliflozin 25 mg tablet 25 mg PO DAILY Diabetes 08/04/23 08/04/23 History
(Jardiance)
levocetirizine 5 mg tablet 5 mg PO DAILY Allergies 08/04/23 08/04/23 History
multivitamin 1 tab PO DAILY Supplement 08/04/23 08/04/23 History
pantoprazole 40 mg tablet,delayed 40 mg PO DAILY Gastrointestinal 08/04/23 08/04/23 History
release Issue
sertraline 100 mg tablet 200 mg PO DAILY Mental 08/04/23 08/04/23 History
Health/Anxiety
Review of Systems
-
Unable to obtain full review of systems at this time due to: Acuity
History Source: Physician
All other systems: Unreviewed
Physical Exam
Vital Signs
Vital Signs
Temp Pulse Resp BP Pulse Ox
99.5 F 105 14 124/90 94
08/05/23 15:05 08/05/23 12:45 08/05/23 12:45 08/05/23 12:45 08/05/23 13:42
Lab Results
WBC 3.3 10^3/uL (4.8-10.8) L 08/05/23 12:49
RBC 5.61 10^6/uL (4.70-6.10) 08/05/23 12:49
Hgb 15.1 g/dL (13.0-18.0) 08/05/23 15:59
Hct 46.4 % (39.0-52.0) 08/05/23 15:59
Plt Count 70 10^3/uL (130-400) L D 08/05/23 12:49
Sodium 137 mmol/L (135-145) 08/05/23 15:57
Potassium 6.9 mmol/L (3.5-5.1) H* D 08/05/23 15:57
Chloride 109 mmol/L (98-107) H 08/05/23 15:57
Carbon Dioxide 9 mmol/L (22-30) L* 08/05/23 15:57
BUN 44 mg/dl (9-20) H 08/05/23 15:57
Creatinine 3.3 mg/dL (0.7-1.3) H 08/05/23 15:57
eGFR 21.08 08/05/23 15:57
Glucose 208 mg/dl (70-99) H 08/05/23 15:57
Calcium 6.7 mg/dl (8.4-10.2) L* 08/05/23 15:57
Phosphorus 9.5 mg/dl (2.5-4.5) H 08/05/23 12:49
Albumin 5.5 g/dl (3.5-5.0) H 08/04/23 12:00
Physical Exam
General: Other (intubated and sedated)
HEENT: Other (ET tube in place)
Respiratory: Other (intubated and sedated)
Cardiac: Other (deferred)
Breast: Deferred by me
Abdomen: Other (open, ongoing exlap at bedside)
Rectal: Deferred by Provider
Genito-urinary: Other (anuric)
Musculoskeletal: Cyanosis (cyanosis of ears)
Skin: No Rash
Assessment/Plan
-
Assessment:
Metabolic acidosis
Hyperkalemia
Shock maxed on pressor support
SBO
Bowel ischemia s/p multiple surgeries
Respiratory failure
anuric EHSAN (Cr 3.3)
Hyperglycemia
Plan:
- in the setting of refractory acidosis, hyperK and anuria we will initiate CRRT
- initiate CRRT on 0K bath due to K of 6.9
- 2L dialysate flow, will titrate if needed
- consult IR for emergent temp HD line
- continue pressor support. MAP goal >65
- monitor I/Os. Flores in place
- serial labs per CRRT protocol
Data Reviewed
-
Radiology: Image Personally Visualized and interpreted (ET tube in place. PNA vs. atelectasis of left lung base)
CT Scan: Report Reviewed by me
Labs: Labs Reviewed by me, Discussed with Physician and Discussed with Nurse
Old Records: Reviewed
[2023-08-05] MEDS: VERSED 4 MG IV (18:00)
[2023-08-05] MEDS: LEVOPHED 258 MG IV (18:20)
[2023-08-05 18:28] LABS: Glucose - Point of Care 136 mg/dl (70-99)
--- NOTE | 2023-08-05 18:30 | W.IMMPOSTOP ---
Addendum entered and electronically signed by Darrell Stanton MD 08/05/23 19:28:
#[id number]
Original Note:
Surgical Immed Post Op Note
-
Primary Surgeon: Maximino
Assisting Surgeon: None
Pre-op Diagnosis: Septic Shock, MSOF, presumed ischemic bowel
Post-op Diagnosis: Septic Shock with MSOF; ischemic small bowel
Procedure Performed: Ex Lap, SBR; ab-thera TAC vac placement
Anesthesia Type: Sedation with 4mg Versed; Nimbex 11mg
Specimen / Cultures: Small bowel
Estimated Blood Loss: 30mL
Complications: none immediate
Operative Findings: progressive ischemic changes of SB btwn prior 2 small bowel anastomoses. Additional ~90cm small bowel resected. Proximal and distal small bowel ends not in continuity. Ab-thera temporary abdominal closure divice placed.
detailed discussions with patient sister in ICU waiting and family friend via phone call simultaneously. reviewed in detail care from start to current. we discussed the highly unstable situation currently in and surgical findings and procedures.
advised uncertainty of patients neurologic status, maximal life support of multiple organ functions (heart with vasopressor agents, ventilatory support, plan to start CRRT for kidney failure, DIC, and surgery that has removed large portion of small
bowel due to progressive SB ischemia.
they voiced an understanding of current situation and care and any questions were addressed
--- NOTE | 2023-08-05 18:33 | PTCARENOTE ---
Repeat labs drawn as ordered. Patient continues with metabolic acidosis, multiple orders received for bicarb and calcium, administered, see MAR. Patient continues with persistent hypotension despite max doses of all pressors. [place] Actor at bedside
throughout shift. Dr. Stanton informed. Dr. Stanton and OR staff at bedside to preform bowel resection, see OR documentation and MAR. Angiotensin II ordered and administered, titrate per protocol. Nephrology consulted, IRAD consulted. Patient to be
accessed and started on CRRT.
--- NOTE | 2023-08-05 19:18 | RESPNOTE ---
Called to bedside at shift change for code 9. CPR in progress. After several round pt was declared
--- NOTE | 2023-08-05 19:25 | PTCARENOTE ---
Patient noted to be increasingly hypotensive despite all pressors maxed. Darrell ZAPATA at bedside. Family at bedside. Order received for bicarb. Following bicarb administration patient went into V-Tach. Code called. See code sheet for further details.
--- NOTE | 2023-08-05 20:28 | PTCARENOTE ---
[facility] notified. Patient not a candidate for donation. Family left bedside with patient belongings. Patient transported to [facility].
--- NOTE | 2023-08-05 20:40 | W.PN.UPDATE ---
Update Note
Progress Note Update
1851 Patient went into [facility]. CPR immediately started and was followed by defibrillation which was unsuccessful. ACLS protocol continued. Multiple drugs given (refer to code sheet). 1906 Dr Stanton discussed with family the prognosis and decision
was made to stop resuscitation. Patient passed at 191. Prior to arrest the patient was on four pressors, vented, severe acidosis,�and in multiple system failure.�
--- NOTE | 2023-08-05 21:15 | W.PN.DEATH ---
Pronouncement of
-
Called to see patient to pronounce.
No spontaneous heart tones or respirations noted.
Patient not responsive to verbal stimuli.
Patient is pronounced .
Time of : 19:12
Date of : 08/05/23
Cause of : Septic Shock due to bowel obstruction with ischemic bowl
Family Notified: Yes
--- NOTE | 2023-08-06 11:50 | PTCARENOTE ---
Assisted Dr. Stanton at pt. bedside to perform a Laparotomy with Small Bowel Resection on 08/05/23. Time out was performed at 1717 by Sabina Mei RN and incision was made at 1721. Counts were performed prior to start and a second during closure.
Procedure end was at 1744. Small bowel specimen was sent to the lab. Sterility was maintained during whole procedure. Josselyn Lorenz (myself) was the scrub nurse.
--- NOTE | 2023-08-07 06:44 | W.DCSUMMARY ---
Discharge Summary
Discharge Data
Date of Admission: 08/04/23
Date of Discharge: 08/05/23
-
Pending Results: No
Hospital Course
Primary care physician : Cely Pham
Principal Discharge diagnosis : Septic shock due to bowel obstruction with ischemic bowel and multiorgan system failure
Chronic Discharge diagnosis : Type 2 diabetes mellitus, essential hypertension, bipolar disorder, tobacco use disorder
Hospital Course : Patient is a 58-year-old male with a history of essential hypertension and bir-dezhdio-wxcuhiqbw type 2 diabetes who presented complaining of severe abdominal pain for 2 days prior to admission. Patient stated that he had nausea
and vomiting which then progressed to severe abdominal pain. He stated he experienced some relief on the afternoon prior to admission but on the morning of admission it returned. He stated 'I have never felt pain like this before'. Patient admits
to normal bowel movements since the day prior to admission. He denies any history of previous abdominal surgery. Patient was admitted.
Problem #1: Septic shock due to bowel obstruction with ischemic bowel and multiorgan system failure. Patient was admitted on the evening of August 04, 2023 however the following morning on August 04 the patient developed septic shock. Patient had
progressive acidosis, leukopenia along with progressive abdominal pain and distention despite NG tube decompression and prompt surgical evaluation was recommended. Patient was taken to the operating room by 7:45 AM on the morning of August 05, 2023.
Patient was given aggressive IV fluid resuscitation as well as broad-spectrum antibiotics with Zosyn. Patient had high-grade complete small bowel obstruction from food bolus present at a suspected Meckel's diverticular high-grade stricture. Small
bowel resection was done of about 85 to 90 cm. For small bowel anastomosis was at 90 cm from the ligament of Treitz. Second small bowel anastomosis was 85 cm distally from that and 50 cm from the terminal ileum. Patient remained intubated,
arterial line was placed and the patient went directly to the intensive care unit postoperatively.
Despite aggressive surgical resection, patient remained critically ill. He was maximized on 3 vasopressors and a fourth 1 was added. Bicarbonate drip was added as well. He was given an amp of calcium. Blood pressures continue to drop. He was
not making urine and kidney function continued to deteriorate. Stress dose steroids were added as well. Nephrology was consulted to start CRRT. Unfortunately, due to continued deterioration the patient underwent a second surgery in the intensive
care unit at the bedside. Progressive ischemic changes of the small bowel between the 2 prior bowel anastomosis were found and an additional 90 cm of small bowel was resected.
At 6:52 PM on August 05, 2023, patient went into ventricular tachycardia. CPR was immediately started followed by defibrillation which was unsuccessful. Aggressive resuscitation was given. Dr. Stanton discussed with the family his prognosis and
decision was made to stop resuscitation. Patient was pronounced at 19:12 on August 05, 2023. Again prior to his arrest. The patient was maxed on 4 pressors, intubated, had severe acidosis and multisystem organ failure.
Important imaging findings :
CT SCAN ABDOMEN/PELVIS IMPRESSION:
Small bowel obstruction with a transition point in the mid abdomen.
Procedure findings :
1st SURGERY Operative Findings: High-grade/complete small bowel obstruction from food bolus present at suspected Meckel's diverticular high-grade stricture.� Moderately distended proximal small bowel with areas suggestive of
partial-thickness/mucosal ischemia.� Proximal ileum/distal jejunum particularly with what appeared to be circumferential mucosal ischemia.� Small bowel proximally and distal to this area suspected to have more limited areas of mucosal ischemia.�
Small bowel resection performed of about 85 cm to 90 cm where the circumferential mucosal ischemia was noted.� First small bowel anastomosis is at 90 cm from ligament of Treitz (galc-ce-[id number] KRISTI 80 purple).� Second small bowel anastomosis is 85 cm
distally from this and 50 cm from terminal ileum ([id number] KRISTI 80 purple anastomosis)
2nd SURGERY Operative Findings:� progressive ischemic changes of SB btwn prior 2 small bowel anastomoses.� Additional ~90cm small bowel resected.� Proximal and distal small bowel ends not in continuity.� Ab-thera temporary abdominal closure divice
placed.
Discharge Plan
-
Patient Disposition:
Date/Time
Date/Time: 08/05/23 19:12
Discharge Date and Time
Discharge Date/Time: 08/05/23 19:12
== END 2023-08-05 19:12 | disposition expired | DRG 853 ==
LOC: ICU 20:16
PROVIDERS: Emergency Medicine; Physician Assistant Medical; Registered Nurse; ADMITTING PHYSICIAN Internal Medicine; ATTENDING PHYSICIAN Internal Medicine; CONSULT PHYSICIAN Internal Medicine Critical Care Medicine; CONSULT PHYSICIAN Student in an Organized Health Care Education/Training Program; CONSULT PHYSICIAN Surgery; EMERGENCY PHYSICIAN Emergency Medicine; FAMILY PHYSICIAN Family Medicine
PROC: 0D9670Z Drainage of Stomach with Drainage Device, Via Natural or Artificial Opening (ICD-10-PCS; 2023-08-04)
PROC: 0DT80ZZ Resection of Small Intestine, Open Approach (ICD-10-PCS; 2023-08-05)
PROC: 0DB80ZZ Excision of Small Intestine, Open Approach (ICD-10-PCS; 2023-08-05)
DX: A41.9 Sepsis, unspecified organism (principal); K65.9 Peritonitis, unspecified; R65.21 Severe sepsis with septic shock; K55.9 Vascular disorder of intestine, unspecified; K56.601 Complete intestinal obstruction, unspecified as to cause; I47.20 Ventricular tachycardia, unspecified; N17.9 Acute kidney failure, unspecified; E87.21 Acute metabolic acidosis; R57.1 Hypovolemic shock; E11.65 Type 2 diabetes mellitus with hyperglycemia; I10 Essential (primary) hypertension; F31.9 Bipolar disorder, unspecified; F17.210 Nicotine dependence, cigarettes, uncomplicated
CPT/HCPCS: 88307; 43752; 71045; 74177; 80048; 80053; 82805; 82962; 83036; 83605; 83690; 83735; 84100; 85014; 85018; 85025; 85027; 85610; 85730; 86850; 86900; 86901; 87040; 93005; 94002; 96361; 96365; 96375; 99285; J7030; Q9967